=== PATIENT | female | born 1990 | race Hispanic/Latino ===

== ENCOUNTER 2017-04-15 22:11 | Inpatient (IN) ==
[2017-04-15] MEDS ORDERED: STADOL IV PRN ×3 (22:14)
[2017-04-15] MEDS ORDERED: BRETHINE SUBQ PRN (22:14)
[2017-04-15] MEDS ORDERED: PEPCID PO ONE (22:14)
[2017-04-15] MEDS ORDERED: TYLENOL PO PRN (22:14)
[2017-04-15] MEDS ORDERED: REGLAN PO ONE (22:14)
[2017-04-15] MEDS ORDERED: AMBIEN PO PRN (22:14)
[2017-04-15] MEDS ORDERED: KEFZOL 1 GM/D5W 1 GM/50 ML IVPB IV PRN (22:14)
[2017-04-15] MEDS ORDERED: PEPCID PO PRN (22:14)
[2017-04-15] MEDS ORDERED: ZOFRAN IV PRN (22:14)
[2017-04-15] MEDS ORDERED: PEPCID IV PRN (22:14)
[2017-04-16] MEDS: LR 1,000 ML IV ONE ×2 (05:30→09:39)
[2017-04-16 05:54] LABS: MANUAL DIFF NEEDED? NO
[2017-04-16 05:57] LABS: BASO% 0.3 % (0.0-0.8); EOS# 0.11 X1000 (0.0-0.7); EOS% 1.1 % (0.0-10.0); HEMATOCRIT 33.8 % (37.0-47.0); HEMOGLOBIN 11.2 g/dL (12.0-16.0); IMM GRAN# 0.02 X1000 (0.0-0.04); IMM GRAN% 0.2 % (0.0-0.5); LYMPH# 2.79 X1000 (1.2-3.4); MCH 27.2 PG (27-31); MCHC 33.1 g/dL (33-37); MONO# 0.91 X1000 (0.11-0.59); MONO% 9.4 % (1.7-9.3); MPV 12.7 FL (7.4-10.4); PLT 196 X1000 (130-400); RBC 4.12 XMIL (4.2-5.4)
[2017-04-16] MEDS: PITOCIN 30 UNITS/LR 30 UNITS/500 ML IV.SOLN IV SCH ×2 (06:05→12:01)
--- NOTE | 2017-04-16 07:31 | HISTORY AND PHYSICAL ---
CHIEF COMPLAINT: Here for scheduled induction of labor. HISTORY OF PRESENT ILLNESS: The patient is a 26-year-old, G4, P3-0-0-3 at 39 weeks and 0 days, who presented to the hospital for scheduled induction of labor. The patient has no complaints at this time. Baby is moving well. Denied vaginal bleeding or loss of fluid. Occasional contractions. PAST MEDICAL HISTORY: Significant only for history of gestational diabetes in a 2014 . OBSTETRICAL HISTORY: 1. On 10/06/2009, full-term, 39-week induction of labor with vaginal delivery of a female infant in [place] without complications. 2. On 02/22/2011, a 39-week elective induction of labor with vaginal delivery of a male infant in [place] without complications. 3. On 02/26/2014, a 39-week induction of labor with vaginal delivery of a male infant. was complicated by placenta previa that resolved, and diet-controlled gestational diabetes. 4. Babies weighed anywhere from 6 pounds 9 ounces to 6 pounds 13 ounces, but the patient cannot recall which one was which. PAST SURGICAL HISTORY: In 2009, right arm broken bone repair with hardware. ALLERGIES: No known allergies. MEDICATIONS: vitamins and Tylenol as needed. FAMILY HISTORY: Diabetes in maternal uncle, and mouth cancer in maternal grandfather. Asthma in daughter. SOCIAL HISTORY: Denies drug use. Occasional alcohol use when not . Never smokes. She lives with her 3 children and her spouse. Marital status is unmarried. 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 REVIEW OF SYSTEMS: Negative, except as noted above. PHYSICAL EXAMINATION: VITAL SIGNS: Temperature 96.9 degrees, heart rate 77, blood pressure 130/78, respirations 18. GENERAL: The patient is awake, alert, and oriented, in no acute distress, [place]ian-speaking female. CHEST: Clear to auscultation bilaterally. CARDIOVASCULAR: Regular rate and rhythm. ABDOMEN: Soft, gravid, and nontender. EXTREMITIES: No clubbing, cyanosis, or edema. CERVICAL: At 3 cm, 50%, and -2 posterior with intact bag of water. NST 140s, moderate variability, and reactive with occasional mild variables. [place] with irregular contractions. PERTINENT LABORATORY DATA: GBS is negative. Passed 3-hour Glucola after failing 1-hour Glucola at 149. RPR is nonreactive. Pap is normal. Blood type is O positive, antibody negative. Rubella is immune. The remainder of the labs are unremarkable. ASSESSMENT AND PLAN: A 26-year-old, G4, P3-0-0-3 at 39 weeks and 0 days. 1. Will continue with Pitocin induction of labor per patient request. 2. GBS negative. 3. Patient having a baby boy, and does desire circumcision. cc: MD Chicho Kimbrough MD
[2017-04-16] MEDS ORDERED: XYLOCAINE-MPF 1% INJ ONE (07:38)
[2017-04-16] MEDS ORDERED: MINERAL OIL TOP ONE (07:38)
[2017-04-16] MEDS ORDERED: LR 1,000 ML IV SCH (09:39)
[2017-04-16] MEDS ORDERED: CYTOTEC PO PRN (12:05)
[2017-04-16] MEDS ORDERED: PITOCIN 20 UNITS/LR 20 UNITS/1,000 ML IV.SOLN IV SCH (12:05)
[2017-04-16] MEDS ORDERED: M-M-R II VACCINE SUBQ ONE (12:05)
[2017-04-16] MEDS ORDERED: PERI MEDS (DERMOPLAST/NUPERCAINAL/TUCKS) MISC PRN (12:05)
[2017-04-16] MEDS ORDERED: HYDROXYZINE IM PRN (12:05)
[2017-04-16] MEDS ORDERED: XYLOCAINE-MPF 1% INJ PRN (12:05)
[2017-04-16] MEDS ORDERED: AMBIEN PO PRN (12:05)
[2017-04-16] MEDS ORDERED: PITOCIN 30 UNITS/LR 30 UNITS/500 ML IV.SOLN IV ONE (12:05)
[2017-04-16] MEDS ORDERED: BOOSTRIX VACCINE IM ONE (12:05)
[2017-04-16] MEDS ORDERED: BENADRYL IV PRN (12:05)
[2017-04-16] MEDS ORDERED: PITOCIN IM PRN (12:05)
[2017-04-16] MEDS ORDERED: BENADRYL PO PRN (12:05)
[2017-04-16] MEDS ORDERED: HYDROXYZINE PO PRN (12:05)
[2017-04-16] MEDS: MOTRIN PO PRN ×2 (14:08→21:51)
[2017-04-16] MEDS: NORCO-5 PO PRN ×2 (14:09→21:51)
[2017-04-16 14:14] LABS: UR AMPHETAMINES QUAL NONE DETECTED (NONE DETECT); UR BARBITUATES QUAL NONE DETECTED (NONE DETECT); UR BENZODIAZEPIN QUAL NONE DETECTED (NONE DETECT); UR CANNABINOIDS QUAL NONE DETECTED (NONE DETECT); UR COCAINE QUAL NONE DETECTED (NONE DETECT); UR MDMA QUAL NONE DETECTED (NONE DETECT); UR METHADONE QUAL NONE DETECTED (NONE DETECT); UR METHAMPHETAMINE QUAL NONE DETECTED (NONE DETECT); UR OPIATES QUAL NONE DETECTED (NONE DETECT); UR OXYCODONE QUAL NONE DETECTED (NONE DETECT); UR PCP QUAL NONE DETECTED (NONE DETECT); UR TCA QUAL NONE DETECTED (NONE DETECT)
--- NOTE | 2017-04-16 14:40 | OPERATIVE NOTE ---
PROCEDURE DATE: 04/16/2017 PREOPERATIVE DIAGNOSES: 1. [id number]-old, G4, P3-0-0-3 at 39 weeks and 0 days. 2. Elective induction of labor. POSTOPERATIVE DIAGNOSES: 1. Dsbwol-wmb-gtvq-old, G4, P-4-0-0-4. 2. Status post spontaneous vaginal delivery. SURGEON: Lillie Restrepo MD HOSPITAL COURSE: The patient was admitted late last night for Pitocin induction of labor. She was started on Pitocin earlier this morning and underwent artificial rupture of membranes at 3 cm and posterior. She quickly progressed throughout the morning and advanced to complete where she pushed for a short period of time and delivered a 7 pound 6 ounce male infant over left occiput anterior position through controlled spontaneous vaginal delivery. Nuchal cord x1 was reduced after delivery. Baby was bulb suctioned. Cord was clamped and cut and baby was handed to waiting nursery staff. Cord blood was obtained. Placenta at this time was then massaged from the uterus. The placenta was noted to be intact. Fundus was noted to be firm. Vaginal bleeding was well controlled. She was inspected for lacerations and none were found. Apgars were 9 at 1 minute, 10 at 5 minutes. Baby was born at 11:26 in the morning. Mother does desire circumcision for the baby. Patient tolerated the procedure well. All sponge, lap, needle counts were correct x3 and patient stayed in her room for recovery. cc: MD Chicho Kimbrough MD
[2017-04-16] MEDS: PERICOLACE PO SCH (21:47)
[2017-04-17] MEDS: NORCO-5 PO PRN ×2 (04:02→16:03)
[2017-04-17] MEDS: MOTRIN PO PRN ×2 (06:21→16:03)
[2017-04-17 06:25] LABS: HEMATOCRIT 30.1 % (37.0-47.0); HEMOGLOBIN 9.7 g/dL (12.0-16.0); MCH 26.9 PG (27-31); MCHC 32.2 g/dL (33-37); MCV 83.4 FL (81-99); MPV 12.4 FL (7.4-10.4); RBC 3.61 XMIL (4.2-5.4)
[2017-04-17] MEDS: PRECARE PO SCH (08:32)
--- NOTE | 2017-04-17 09:10 | PROGRESS NOTE ---
DATE: 04/17/2017 SUBJECTIVE: She is day 1. Ms. Gee is without complaints. She is sitting on the side of the bed, has no distress. States she has voided, ambulated, tolerating p.o. OBJECTIVE: Vital Signs: Temp 96.4, pulse 73, blood pressure 124/68. General: Alert, cooperative, no distress. Neck: Supple. Lungs: Clear. Heart: Regular sinus rhythm. Abdomen: Distended. Uterus is firm and nontender. Extremities: +2 lower extremity edema. LABORATORY DATA: Hemoglobin 9.7. PLAN: Routine . Expect discharge in the morning. cc: MD Chicho Martinez MD
[2017-04-17] MEDS: PERICOLACE PO SCH (20:09)
[2017-04-18 07:57] VITALS: BP 118/72
[2017-04-18] MEDS: PRECARE PO SCH (09:12)
== END 2017-04-18 12:55 | disposition home or self-care (01) ==
LOC: P.LD 22:11 → P.WC 04-17 08:22
PROVIDERS: ADMIT Obstetrics & Gynecology; ATTEND Obstetrics & Gynecology